=== PATIENT | male | born 1995 | race Caucasian/White ===

== ENCOUNTER 2016-11-22 18:28 | Emergency (ER) | payer MEDICAID, OTHER ==
[~2016-11-22] VITALS: Ht 177.8 cm; Wt 86.2 kg
[2016-11-22 19:05] LABS: BASOPHILS % (AUTO) 0.7 % (0.0-2.0); DIFF TOTAL % 100 %; EOSINOPHILS # (AUTO) 0.1 /CMM (0.0-0.7); EOSINOPHILS % (AUTO) 1.6 % (0.0-6.0); HEMATOCRIT 50 % (39-51); HEMOGLOBIN 16.7 g/dL (13.5-17.5); LYMPHOCYTES # (AUTO) 2.8 /CMM (0.8-4.8); LYMPHOCYTES % (AUTO) 39.7 % (20.0-44.0); MEAN CORPUSCULAR HEMOGLOBIN 30 PG (26.0-33.0); MEAN CORPUSCULAR HGB CONC 34 g/dl (31.0-36.0); MEAN CORPUSCULAR VOLUME 90 fL (80-96); MONOCYTES # (AUTO) 0.5 /CMM (0.1-1.30); MONOCYTES % (AUTO) 6.7 % (2.0-12.0); NEUTROPHILS # (AUTO) 3.7 /CMM (1.8-8.9); NEUTROPHILS % (AUTO) 51.3 % (43.0-81.0); PLATELET COUNT (AUTO) 219 /CMM (150-450); WHITE BLOOD COUNT (AUTO) 7.1 K/uL (4.3-11.0)
[2016-11-22 19:15] LABS: CREATININE 1.2 mg/dL (0.6-1.3); POTASSIUM 3.7 mmol/L (3.5-5.1)
[2016-11-22 19:20] LABS: INR 0.96 (0.87-1.13); PROTHROMBIN TIME 10.1 SECS (9.5-12.7)
[2016-11-22 20:54] VITALS: BP 116/60
== END 2016-11-22 20:54 | disposition home or self-care (01) ==
LOC: ER 18:32
DX: K92.1 Melena (principal); F17.200 Nicotine dependence, unspecified, uncomplicated
CPT/HCPCS: 36415; 80048; 85025; 85730; 86850; 99284; A4606; Z7610

== ENCOUNTER 2020-09-17 19:24 | Emergency (ER) | payer BC, OTHER ==
[~2020-09-17] VITALS: Ht 177.8 cm; Wt 95.3 kg
[2020-09-17 20:40] VITALS: BP 167/88
[2020-09-17] MEDS ORDERED: IBUPROFEN 600 MG TABLET ONE (21:15)
[2020-09-17] MEDS: IBUPROFEN 600 MG TABLET PO ONE (21:23)
== END 2020-09-17 21:53 | disposition home or self-care (01) ==
LOC: ER 19:33
DX: S63.591A Other specified sprain of right wrist, initial encounter (principal); W22.8XXA Striking against or struck by other objects, initial encounter; Y93.89 Activity, other specified; Y92.89 Other specified places as the place of occurrence of the external cause; Y99.8 Other external cause status
CPT/HCPCS: 73110; 73130-TC